=== PATIENT | female | born 1960 | race Caucasian/White ===

== ENCOUNTER 2022-09-13 18:13 | Emergency (ER) | payer OTHER ==
[2022-09-13 18:51] LABS: BASO % 0.6 % (0.0-1.0); EOS # 0.3 10*3/uL (0.0-0.4); EOS % 4.2 % (1.0-4.0); HEMATOCRIT 42.5 % (37.0-47.0); LYMPH # 2.4 10*3/uL (1.3-4.4); LYMPH % 36.6 % (27.0-41.0); MEAN CELL VOLUME 91.6 fl (81.0-99.0); MEAN CORPUSCULAR HGB 31.7 pg (27.0-31.0); MEAN CORPUSCULAR HGB CONC 34.6 g/dl (33.0-37.0); MEAN PLATELET VOLUME 8.7 fl (9.6-12.3); MONO # 0.5 10*3/uL (0.1-1.0); MONO % 7.4 % (3.0-9.0); NEUT # 3.4 10*3/uL (2.3-7.9); NEUT % 50.9 % (47.0-73.0); PLATELET COUNT AUTOMATED 337 10*3/uL (130-400); RED BLOOD COUNT 4.64 10*6/uL (4.10-5.10); RED CELL DISTRI WIDTH 12.6 % (0-14.5); WHITE BLOOD COUNT 6.6 10*3/uL (4.8-10.8)
[2022-09-13 19:05] LABS: ALKALINE PHOSPHATASE 47 U/L (46-116); BUN 13 mg/dl (9-23); CHLORIDE 99 mmol/L (98-107); CREATININE 0.59 mg/dL (0.55-1.02); POTASSIUM 3.5 mmol/L (3.4-5.1); SGPT/ALT 63 U/L (10-49); SODIUM 137 mmol/L (136-145); TOTAL PROTEIN 7.6 gm/dL (6.0-8.0)
== END 2022-09-13 20:55 | disposition home or self-care (01) ==
LOC: ED 18:13
PROVIDERS: Family Medicine
DX: M24.411 Recurrent dislocation, right shoulder (principal); Z91.040 Latex allergy status

== ENCOUNTER 2023-08-30 06:44 | Emergency (ER) | payer OTHER ==
[~2023-08-30] VITALS: Ht 152.4 cm; Wt 61.2 kg
[2023-08-30] MEDS ORDERED: PERCOCET 5-3251 EACH PO (07:39)
[2023-08-30] MEDS ORDERED: VALTREX1000 MG PO (07:39)
== END 2023-08-30 07:50 | disposition home or self-care (01) ==
LOC: ED 06:44
DX: B02.9 Zoster without complications (principal); B34.9 Viral infection, unspecified; Z91.040 Latex allergy status

== ENCOUNTER 2025-02-15 12:44 | Emergency (ER) | payer OTHER ==
[~2025-02-15] VITALS: Ht 152.4 cm; Wt 62.1 kg
[~2025-02-15 12:44] MED LIST: PERCOCET 5-3251 EACH PO; VALTREX1000 MG PO
[2025-02-15] MEDS ORDERED: diazePAM 10 MG/2 ML SYR IV ONE (13:35)
[2025-02-15] MEDS ORDERED: SODIUM CHLORIDE 0.9% 1,000 ML IV ONE (13:35)
[2025-02-15] MEDS ORDERED: [UNRECOGNIZED DRUG - OTHER] IV ONE (13:35)
[2025-02-15] MEDS ORDERED: Ketamine Hydrochloride 500 MG/10 ML VIAL IV ONE (13:40)
[2025-02-15] MEDS ORDERED: TRAMADOL HCL50 MG PO (14:18)
== END 2025-02-15 14:56 | disposition home or self-care (01) ==
LOC: ED 12:44
DX: S43.004A Unspecified dislocation of right shoulder joint, initial encounter (principal); Z79.899 Other long term (current) drug therapy; X50.1XXA Overexertion from prolonged static or awkward postures, initial encounter; Y93.89 Activity, other specified; Y92.89 Other specified places as the place of occurrence of the external cause; Y99.8 Other external cause status

== ENCOUNTER 2025-02-18 01:24 | Emergency (ER) | payer OTHER ==
[~2025-02-18] VITALS: Ht 152.4 cm; Wt 63.5 kg
[~2025-02-18 01:24] MED LIST changes: +TRAMADOL HCL50 MG PO
[2025-02-18] MEDS ORDERED: METHOCARBAMOL 750 MG TAB PO ONE (02:05)
[2025-02-18] MEDS ORDERED: Acetaminophen/Hydrocodone 5 MG/325 MG TABLET PO ONE (03:45)
== END 2025-02-18 03:33 | disposition home or self-care (01) ==
LOC: ED 01:24
DX: M25.511 Pain in right shoulder (principal); Z79.899 Other long term (current) drug therapy